=== PATIENT | female | born 1970 | race Caucasian/White ===

== ENCOUNTER 2018-06-01 22:03 | Emergency (ER) | payer BC, OTHER ==
[2018-06-01 22:14] VITALS: BP 124/80; PULSE 84; TEMP 98; BMI 23.0
--- NOTE | 2018-06-01 22:39 | PDOC ---
History of Present Illness - General Chief Complaint: Laceration Stated Complaint: LACERATION TO EYELID Time Seen by Provider: 06/01/18 22:34 - History of Present Illness Initial Comments: 06/01/18 22:36 47 yo F with no significant pmh who p/w right eyelid laceration. 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 Minimal blood loss, with absent eye involvement, vision change, headache, back pain, neck pain. Does not recall past tetanus. Denies foreign body involvement or debris, OTC medication use, or at home irrigation. Patient denies N/V, F,C, CP, SOB, urinary complaints, abdominal pain, diarrhea, constipation, lightheadedness, weakness, sensory changes. PMHx: as noted above ROS: as noted SHx: Reports Etoh this evening.Denies tobacco use, or IVDA. Allergies:NKDA Past History - Past Medical History Allergies/Adverse Reactions: Allergies Allergy/AdvReac Type Severity Reaction Status Date / Time Penicillins Allergy Unknown Verified 06/01/18 22:10 COPD: No - Immunization History Immunization Up to Date: Yes - Suicide/Smoking/Psychosocial Hx Smoking History: Current every day smoker Number of Cigarettes Smoked Daily: 10 Information on smoking cessation initiated: No Hx Alcohol Use: Yes Drug/Substance Use Hx: No Review of Systems - Review of Systems Comments:: 06/01/18 22:36 GENERAL/CONSTITUTIONAL: No fever or chills. No weakness. HEAD, EYES, EARS, NOSE AND THROAT: + Right eyelid laceration. No change in vision. No ear pain or discharge. No sore throat. CARDIOVASCULAR: No chest pain or shortness of breath RESPIRATORY: No cough, wheezing, or hemoptysis. GASTROINTESTINAL: No nausea, vomiting, diarrhea or constipation. GENITOURINARY: No dysuria, frequency, or change in urination. MUSCULOSKELETAL: No joint or muscle swelling or pain. No neck or back pain. SKIN: No rash NEUROLOGIC: No headache, vertigo, loss of consciousness, or change in strength/ sensation. ENDOCRINE: No increased thirst. No abnormal weight change HEMATOLOGIC/LYMPHATIC: No anemia, easy bleeding, or history of blood clots. ALLERGIC/IMMUNOLOGIC: No hives or skin allergy. *Physical Exam - Vital Signs Last Vital Signs Temp Pulse Resp BP Pulse Ox 98.0 F 84 18 124/80 100 06/01/18 22:11 06/01/18 22:11 06/01/18 22:11 06/01/18 22:11 06/01/18 22:11 - Physical Exam Comments: 06/01/18 22:37 GENERAL: Awake, alert, and fully oriented, in no acute distress HEAD: + 1-2 cm horizontal, linear, right superior lateral supraorbital/eyelid laceration, with absent galea visualized, and + subcutaneous involvement. Absent debris. Normocephalic EYES: PERRLA, EOMI, sclera anicteric, conjunctiva clear ENT: Hearing grossly normal, nares patent, oropharynx clear without exudates. Moist mucosa NECK: Normal ROM, supple, no lymphadenopathy, JVD, or masses LUNGS: No distress, speaks full sentences, clear to auscultation bilaterally HEART: Regular rate and rhythm, normal S1 and S2, no murmurs, rubs or gallops, peripheral pulses normal and equal bilaterally. EXTREMITIES : Normal inspection, Normal range of motion, no edema. No clubbing or cyanosis. SKIN: Warm, Dry, normal turgor, no rashes or lesions noted Procedures - Laceration/Wound Repair Right Lateral Eye Wound Length: to 2.5 cm Wound Explored: clean, no foreign body present Wound's Depth, Shape: superficial, linear Irrigated w/ Saline: Yes Betadine Prep: No Wound Debrided: minimal Layer Closure: No Sterile Dressing Applied: Yes Splint Applied: No Sling Applied: No Medical Decision Making - Medical Decision Making 06/01/18 23:34 47 yo F with no significant pmh who p/w right eyelid laceration following facial injury while intoxicated /Etoh. VSS, AF. + 1-2 cm linear, right superior lateral supraorbital/eyelid laceration, with absent galea visualized, and - foreign body or eye involvement. Neg proptosis, or suspicion of corneal abrasion. EOMI, PEERL. Vision intact. No evidence of facial bony deformity or concern for facial fracture, basilar skull fracture, SAH, hematoma, retroorbital hematoma, blowout fracture. Suture repair, tetatnus, and pain control. ED Course: Tetanus, laceration repair with dermabond Patient sober, with normal gait, and clear speech. Stable for d/c with return precautions. F/u with PMD. *DC/Admit/Observation/Transfer Diagnosis at time of Disposition: Eyelid laceration Qualifiers: Encounter type: initial encounter Laterality: right Qualified Code(s): S01.111A - Laceration without foreign body of right eyelid and periocular area, initial encounter - Discharge Dispostion Disposition: HOME Condition at time of disposition: Stable Decision to Admit order: No - Referrals Referrals: Hong Ford [Primary Care Provider] - - Patient Instructions Printed Discharge Instructions: DI for Laceration Repair Additional Instructions: Please return to the emergency department with any new or worsening symptoms or concerns. Please follow up with your primary care physician within 72 hours. - Post Discharge Activity - Attestations Physician Attestion: 06/01/18 22:39 I attest to the information provided in this note.
--- NOTE | 2018-06-01 23:20 | PDOC ---
Attending Attestation - Resident Resident Name: Ricardo Cameron - ED Attending Attestation I have performed the following: I have examined & evaluated the patient, The case was reviewed & discussed with the resident, I agree w/resident's findings & plan, Exceptions are as noted - Medical Decision Making 06/01/18 23:20 I, Dr. Traci Palacio, DO, attest that this document has been prepared under my direction and personally reviewed by me in its entirety. I further attest, that it accurately reflects all work, treatment, procedures and medical decision -making performed by me. 06/01/18 23:22 47yo female with alcohol use tonight who was getting ice out of the freezer and hit her head on the corner -no loc -linear 1cm lac to R eyebrow -no visual changes -no active bleeding -laceration is just under eyebrow -tetanus is not UTD -pt neuro intact -ambulates with a steady gait, no slurred speech -will update tetanus, dermabond to laceration -c spine without ttp -will repair laceration and will d/c to home <Traci Palacio - Last Filed: 06/01/18 23:22> - HPI HPI: 06/01/18 23:34 The patient is a 47-year-old female with no reported past medical history presents to the emergency department with a laceration. The patient reports she was attempting to get ice from the refrigerator, when he hit her R. eyelid against the fridge, denies a headache or LOC. The patient was at home with her friend when the incident occurred, reports having 4 glasses of wine tonight. The patient is unsure of her last tetanus shot. The patient reports a surgery to the L. knee s/p injuring her patella on her driveway. Allergies: penicillins - Physicial Exam PE: 06/01/18 23:43 GENERAL: Awake, alert, and fully oriented, in no acute distress HEAD: No signs of trauma EYES: pupils reactive. PERRLA, EOMI, sclera anicteric, conjunctiva clear LUNGS: Breath sounds equal, clear to auscultation bilaterally. No wheezes, and no crackles HEART: Regular rate and rhythm, normal S1 and S2, no murmurs, rubs or gallops NEUROLOGICAL: Neuro intact. Moves all extremities. Normal speech, normal gait SKIN: (+) 1 cm linear laceration without active bleeding under the R. eyebrow with mild soft tissue swelling. Warm, Dry, normal turgor, no rashes or lesions noted. - Medical Decision Making 06/01/18 23:34 Documentation prepared by Tanvi Farias, acting as medical underwriter for Traci Palacio DO. <Tanvi Farias - Last Filed: 06/01/18 23:43>
[2018-06-01] MEDS ORDERED: DIPHTH,PERTUSS(ACELL),TET 0.5 ML DISP.SYRIN IM ONE (23:21)
== END 2018-06-02 00:05 | disposition home or self-care (01) ==
LOC: JER 22:03 → JERFT 22:03 → JER 06-02 00:05
PROC: 3E0234Z Introduction of Serum, Toxoid and Vaccine into Muscle, Percutaneous Approach (ICD-10-PCS; principal; 2018-06-01)
PROC: 08QNXZZ Repair Right Upper Eyelid, External Approach (ICD-10-PCS; 2018-06-01)
DX: S01.111A Laceration without foreign body of right eyelid and periocular area, initial encounter (principal); F10.10 Alcohol abuse, uncomplicated; W22.8XXA Striking against or struck by other objects, initial encounter; Y93.89 Activity, other specified; Y92.030 Kitchen in apartment as the place of occurrence of the external cause; Y99.8 Other external cause status
CPT/HCPCS: 90715; 99281-25

== ENCOUNTER 2018-08-11 19:04 | Emergency (ER) | payer BC ==
[2018-08-11 19:26] VITALS: BMI 23.3
--- NOTE | 2018-08-11 20:04 | PDOC ---
History of Present Illness - General Chief Complaint: Psychiatric Stated Complaint: INTOX/PANIC ATTACK Time Seen by Provider: 08/11/18 19:21 History Source: Patient Exam Limitations: No Limitations - History of Present Illness Initial Comments: 08/11/18 20:11 48F w/ pmhx of asthma, hypothyroidism, anxiety d/o, GERD presents after a panic attack with new onset chest pain that happened this evening. Pt states the episode occurred while she was at home sitting on her couch. She admits to drinking 3-4 glasses of wine with her dinner. She reports her last panic attack was over a year ago. This episode was associated with chest pain for the first time, which prompted her to come to the ED. Pt reports the chest pain lasted about 30 min, and was 7/10 at the time of the episode, non-radiating, localized to the L of the sternum with associated numbness in her fingers. She also admits to sob, dizziness, lightheadedness, nausea during the episode with some mid-epigastric pain. Upon initial exam in the ED, however, pt was asymptomatic. PMHx: Asthma, hypothyroidism, GERD, anxiety d/o PSHx: L knee sx, tummy tuck FHx: Mother-Breast cx, brother-leukemia, maternal grandfather-HTN Social: Admits to smoking 1 pack/week x30 years, usually drinks 2-4 glasses of wine during dinner; Denies rec drug use Pt is not currently work. Denies recent travel. Past History - Past Medical History Allergies/Adverse Reactions: Allergies Allergy/AdvReac Type Severity Reaction Status Date / Time Penicillins Allergy Unknown Verified 08/11/18 19:38 Home Medications: Ambulatory Orders Alprazolam [Xanax] 0.5 mg PO PRN 08/11/18 Clonazepam [Klonopin] 1 mg PO TID 08/11/18 COPD: No - Immunization History Immunization Up to Date: Yes - Suicide/Smoking/Psychosocial Hx Smoking History: Current every day smoker Have you smoked in the past 12 months: Yes Number of Cigarettes Smoked Daily: 20 Information on smoking cessation initiated: No Hx Alcohol Use: Yes (1 botle of wine daily) Drug/Substance Use Hx: No Review of Systems - Review of Systems Constitutional: No: Chills, Fever HEENTM: No: Recent change in vision Respiratory: Yes: See HPI Cardiac (ROS): Yes: See HPI ABD/GI: Yes: Nausea. No: Constipated, Diarrhea, Vomiting Neurological: No: Headache Psychiatric: Yes: Anxiety, Stressors, Change in Appetite (decreased) *Physical Exam - Vital Signs Last Vital Signs Temp Pulse Resp BP Pulse Ox 98.4 F 94 H 20 124/75 96 08/11/18 19:21 08/11/18 19:21 08/11/18 19:21 08/11/18 19:21 08/11/18 19:21 - Physical Exam General Appearance: Yes: Appropriately Dressed HEENT: positive: EOMI, LITZY, Normal Voice, Pharynx Normal Neck: positive: Supple Respiratory/Chest: positive: Lungs Clear, Normal Breath Sounds Cardiovascular: positive: Regular Rhythm, Regular Rate, S1, S2. negative: Murmur Vascular Pulses: Dorsalis-Pedis (R): 2+, Doralis-Pedis (L): 2+ Gastrointestinal/Abdominal: positive: Normal Bowel Sounds, Soft Extremity: positive: Normal Inspection, Normal Range of Motion Integumentary: positive: Normal Color, Dry, Warm Neurologic: positive: contact lens flashing puncher II-XII NML intact, Fully Oriented, Alert, Motor Strength 5/5 Heart Score/ECG Review - History History: Slightly suspicious - Electrocardiogram EKG: Normal - Age Age: 45-65 - Risk Factors Risk Factors Heart Score: Yes Smoking History Based on the list above the patient has:: 1-2 risk factors - Troponin Troponin: </= normal limit - Score Heart Score - Total: 2 - ECG Intrepretation Rhythm: Regular Rhythm - Quincy Quincy: Normal ED Treatment Course - LABORATORY CBC & Chemistry Diagram: 08/11/18 20:17 08/11/18 20:17 - RADIOLOGY Radiology Studies Ordered: Category Date Time Status CHEST PA & LAT [RAD] Stat Radiology 08/11/18 19:53 Ordered Medical Decision Making - Medical Decision Making 08/11/18 20:45 48F w/ pmhx of asthma, hypothyroidism, anxiety d/o, GERD presents with new onset chest pain during a panic episode. -Pt complained of new chest pain lasting for 30 min which she has never experienced in the past. Will r/o ACS. Neg PERC score, unlikely PE. -CBC/CMP, cardiac profile, TSH, PT/INR, Mag, BNP, U/A, Serum preg, EKG, CXR ordered -will-reassess pt 08/11/18 20:50 -EKG showed NSR, no ST-T changes or evidence of other ischemic changes -CBC and U/A unremarkable 08/11/18 20:51 -Trops neg. Will repeat in 3 hours at 23:15. -Pt complaining of L sided numbness. Head CT w/o contrast ordered to r/o TIA. 08/11/18 21:34 -Head CT showed no evidence of intra or extra-axial hemorrhage. The ventricles and basilar cisterns are unremarkable. There is no evidence of intracranial mass , acute infarct, or midline shift. -Await CXR results; repeat trops Case discussed with Dr. Knowles. 08/12/18 00:15 -Sign out given to Dr. Salinas. *DC/Admit/Observation/Transfer Diagnosis at time of Disposition: Panic attack - Discharge Dispostion Disposition: HOME Condition at time of disposition: Good Decision to Admit order: No - Referrals Referrals: Hong Ford [Primary Care Provider] - - Patient Instructions Printed Discharge Instructions: DI for Anxiety -- Adult, DI for Panic Disorder Additional Instructions: You were seen in the ED for complaints of a panic attack and new onset chest pain. In the ED, your blood work was done which showed normal cardiac enzymes. An ECG (electrocardiogram) was done that did not show any signs of an acute cardiac condition. A chest x-ray was also done that was normal. There is no acute need for hospitalization at this time. You are being discharged home. Please follow up with your primary care physician, Dr. Ford, within 1 week. Please also follow up with your psychiatrist. If you experience persistent chest pain or shortness of breath, difficulty breathing, worsening leg numbness/tingling, please proceed to your nearest emergency room immediately. - Post Discharge Activity
--- NOTE | 2018-08-11 20:04 | PDOC ---
Attending Attestation - Resident Resident Name: Marylu East - ED Attending Attestation I have performed the following: I have examined & evaluated the patient, The case was reviewed & discussed with the resident, I agree w/resident's findings & plan, Exceptions are as noted - HPI HPI: 08/11/18 20:45 Ms Tadeo is a 48F w/ pmhx of asthma, hypothyroidism, anxiety, GERD She presents to the ER for evaluation s/p a panic attack which was followed by chest pain Symptoms began while pt was at home on her couch s/p drinking 3-4 glasses of wine with dinner. She reports her last panic attack was over a year ago. The reason she came in to the ER was because this was never associated in the past with chest pain No palpitations Symptoms lasted 30 minutes and resolved Pain was described as , was 7/10, non-radiating, localized to the L of the sternum with associated numbness in her fingers. No sob No nausea No vomiting No diaphoresis (+) tobacco use, Denies recent travel No exogenous estrogens 08/11/18 20:50 - Physicial Exam PE: 08/11/18 20:54 GENERAL: The patient is in no acute distress. EYES: PERRLA, EOMI, sclera anicteric, conjunctiva clear. ENT: Ears normal, nares patent, oropharynx clear without exudates. Moist mucous membranes. NECK: Normal range of motion, supple without lymphadenopathy, JVD, or masses. LUNGS: Breath sounds equal, clear to auscultation bilaterally. No wheezes, and no crackles. HEART:Regular rate and rhythm, normal S1 and S2 without murmur, rub or gallop. ABDOMEN: Soft, nontender, normoactive bowel sounds. No guarding, no rebound. No masses palpable. EXTREMITIES: Normal range of motion, no edema. No clubbing or cyanosis. No erythema, or tenderness. NEUROLOGICAL: Cranial nerves II through XII grossly intact. Normal speech. No focal neurological deficits. MUSCULOSKELETAL: Back non-tender to palpation, no CVA tenderness SKIN: Warm, Dry, normal turgor, no rashes or lesions noted. - Medical Decision Making 08/11/18 20:45 EKG - Twelve-lead EKG was performed and reviewed by me. There is normal sinus rhythm with a normal rate. The axis is normal. The intervals are normal. There are no ST or T wave abnormalities. Impression: Normal twelve-lead EKG Heart Score/ECG Review - History History: Slightly suspicious - Electrocardiogram EKG: Normal - Age Age: 45-65 - Risk Factors Risk Factors Heart Score: Yes Smoking History Based on the list above the patient has:: 1-2 risk factors - Troponin Troponin: </= normal limit - Score Heart Score - Total: 2
[2018-08-11 20:23] LABS: BASO % 0.9 % (0-2.0); EOS % 5.3 % (0-4.5); HEMATOCRIT 42.3 % (32.4-45.2); LYMPH % 32.2 % (8-40); MCH 31.1 pg (25.7-33.7); MCHC 33.1 g/dl (32.0-36.0); MEAN CELL VOLUME 94.2 fl (80-96); MEAN PLT VOLUME 7.7 fl (7.5-11.1); MONO % 6.2 % (3.8-10.2); NEUT % 55.4 % (42.8-82.8); PLATELET COUNT 293 K/MM3 (134-434); RBC 4.49 M/mm3 (3.60-5.2); RDW 13.7 % (11.6-15.6); WHITE BLOOD COUNT 7.5 K/mm3 (4.0-10.0)
[2018-08-11 20:26] LABS: URINE APPEARANCE CLEAR; URINE BILIRUBIN NEGATIVE (<2.0 mg/dL); URINE COLOR COLORLESS; URINE GLUCOSE (UA) NEGATIVE (NEGATIVE); URINE KETONE NEGATIVE (NEGATIVE); URINE LEUK ESTERASE NEGATIVE (NEGATIVE); URINE NITRITE NEGATIVE (NEGATIVE); URINE PROTEIN NEGATIVE (NEGATIVE); URINE UROBILINOGEN NEGATIVE mg/dL (0.2-1.0)
[2018-08-11 20:39] LABS: INR 0.95 (0.83-1.09); PROTHROMBIN TIME (PATIENT) 11.2 SEC (9.7-13.0)
[2018-08-11 20:43] LABS: EPI CELLS RARE /HPF (FEW); URINE BACTERIA RARE /hpf (NONE SEEN)
[2018-08-11 20:53] LABS: ALBUMIN 4.2 g/dl (3.4-5.0); ALK PHOS 83 U/L (45-117); ANION GAP 8 MMOL/L (8-16); BILIRUBIN,TOTAL 0.3 mg/dL (0.2-1); BLOOD UREA NITROGEN 9 mg/dL (7-18); CALCIUM 8.4 mg/dL (8.5-10.1); CHLORIDE 111 mmol/L (98-107); CO2 27 mmol/L (21-32); CREATININE 0.8 mg/dL (0.55-1.3); GLUCOSE,RANDOM 84 mg/dL (74-106); MAGNESIUM 2.4 mg/dL (1.8-2.4); SGOT/AST 36 U/L (15-37); SGPT/ALT 55 U/L (13-61); SODIUM 146 mmol/L (136-145)
--- NOTE | 2018-08-12 00:24 | PDOC ---
*Physical Exam - Vital Signs Last Vital Signs Temp Pulse Resp BP Pulse Ox 98.4 F 94 H 20 124/75 96 08/11/18 19:21 08/11/18 19:21 08/11/18 19:21 08/11/18 19:21 08/11/18 19:21 ED Treatment Course - LABORATORY CBC & Chemistry Diagram: 08/11/18 20:17 08/11/18 20:17 - ADDITIONAL ORDERS Additional order review: Laboratory Results 08/11/18 08/11/18 08/11/18 23:25 20:17 20:17 PT with INR INR Sodium Potassium Chloride Carbon Dioxide Anion Gap BUN Creatinine Creat Clearance w eGFR Random Glucose Calcium Magnesium Total Bilirubin AST ALT Alkaline Phosphatase Creatine Kinase 89 Troponin I < 0.02 B-Natriuretic Peptide 135.2 H Total Protein Albumin TSH Serum , Qual Urine Color Colorless Urine Appearance Clear Urine pH 6.0 Ur Specific [place] 1.003 L Urine Protein Negative Urine Glucose (UA) Negative Urine Ketones Negative Urine Blood 1+ H Urine Nitrite Negative Urine Bilirubin Negative Urine Urobilinogen Negative Ur Leukocyte Esterase Negative Urine WBC (Auto) <1 Urine RBC (Auto) 1 Ur Epithelial Cells Rare Urine Bacteria Rare 08/11/18 08/11/18 08/11/18 20:17 20:17 20:17 PT with INR 11.20 INR 0.95 Sodium 146 H Potassium 4.0 Chloride 111 H Carbon Dioxide 27 Anion Gap 8 BUN 9 Creatinine 0.8 Creat Clearance w eGFR > 60 Random Glucose 84 Calcium 8.4 L Magnesium 2.4 Total Bilirubin 0.3 AST 36 ALT 55 Alkaline Phosphatase 83 Creatine Kinase 104 Troponin I < 0.02 B-Natriuretic Peptide Total Protein 8.0 Albumin 4.2 TSH 1.92 Serum , Qual Negative Urine Color Urine Appearance Urine pH Ur Specific [place] Urine Protein Urine Glucose (UA) Urine Ketones Urine Blood Urine Nitrite Urine Bilirubin Urine Urobilinogen Ur Leukocyte Esterase Urine WBC (Auto) Urine RBC (Auto) Ur Epithelial Cells Urine Bacteria 08/11/18 20:17 RBC 4.49 MCV 94.2 MCHC 33.1 RDW 13.7 MPV 7.7 Neutrophils % 55.4 Lymphocytes % 32.2 Monocytes % 6.2 Eosinophils % 5.3 H Basophils % 0.9 Medical Decision Making - Medical Decision Making Pt was signed out to me by resident Dr. East, who explained the presentation , ED course, any pending results, and needed interventions. Pending results include repeat troponin. Pt is currently stable and is lying comfortably. Repeat troponin <.02. Considering normal lab results and imaging, pt can be discharged to home with follow-up. Pt advised to follow-up with PCP in 1-2 days. Strict return precautions provided with pt understanding. 08/12/18 00:17 *DC/Admit/Observation/Transfer Diagnosis at time of Disposition: Panic attack - Discharge Dispostion Disposition: HOME Condition at time of disposition: Good - Referrals Referrals: Hong Ford [Primary Care Provider] - - Patient Instructions Printed Discharge Instructions: DI for Anxiety -- Adult, DI for Panic Disorder Additional Instructions: You were seen in the ED for complaints of a panic attack and new onset chest pain. In the ED, your blood work was done which showed normal cardiac enzymes. An ECG (electrocardiogram) was done that did not show any signs of an acute cardiac condition. A chest x-ray was also done that was normal. There is no acute need for hospitalization at this time. You are being discharged home. Please follow up with your primary care physician, Dr. Ford, within 1 week. Please also follow up with your psychiatrist. If you experience persistent chest pain or shortness of breath, difficulty breathing, worsening leg numbness/tingling, please proceed to your nearest emergency room immediately. - Post Discharge Activity
[2018-08-12 00:41] VITALS: BP 105/67; PULSE 83; TEMP 98.7
--- NOTE | 2018-08-12 12:41 | EKG ---
Test Reason : Blood Pressure : / mmHG Vent. Rate : 083 BPM Atrial Rate : 083 BPM P-R Int : 152 ms QRS Dur : 076 ms QT Int : 378 ms P-R-T Axes : 034 021 038 degrees QTc Int : 444 ms NORMAL SINUS RHYTHM NORMAL ECG NO PREVIOUS ECGS AVAILABLE Confirmed by Sergei Michel ([id number]) on 08/12/2018 12:41:05 PM Referred By: Confirmed By:Sergei Michel
== END 2018-08-12 00:40 | disposition home or self-care (01) ==
LOC: JER 19:04
DX: F41.0 Panic disorder [episodic paroxysmal anxiety] (principal); F41.9 Anxiety disorder, unspecified; E03.9 Hypothyroidism, unspecified; J45.909 Unspecified asthma, uncomplicated; K21.9 Gastro-esophageal reflux disease without esophagitis; F17.210 Nicotine dependence, cigarettes, uncomplicated; Z88.0 Allergy status to penicillin
CPT/HCPCS: 36415; 70450-TC; 71046-TC-FY; 80053; 81003; 81015; 82550; 83735; 83880; 84443; 84484; 84703; 85025; 85610; 93005; 93010; 99283-25

== ENCOUNTER 2018-08-21 00:43 | Emergency (ER) | payer BC ==
[2018-08-21 01:33] VITALS: BP 98/74; PULSE 110; TEMP 979.8; BMI 23.9
--- NOTE | 2018-08-21 01:36 | PDOC ---
History of Present Illness - General Chief Complaint: Alcohol intoxication Stated Complaint: INTOXICATION Time Seen by Provider: 08/21/18 01:32 History Source: Patient - History of Present Illness Initial Comments: 08/21/18 01:58 48F w/ pmhx of asthma, hypothyroidism, anxiety d/o, GERD presents after a panic attack with chest discomfort. patient seen in the ED for same on 08/11. patient reports that she was trying to wean off her anxiety medication and noticed to have more frequent panic attacks. patient reports severe stress at home due to impending divorce, children. patient reports drinking two glasses of wine and feeling " buzzed" . denies daily drinking. tearful. denies SI, HI . Past History - Past Medical History Allergies/Adverse Reactions: Allergies Allergy/AdvReac Type Severity Reaction Status Date / Time Penicillins Allergy Unknown Verified 08/11/18 19:38 Home Medications: Ambulatory Orders Alprazolam [Xanax] 0.5 mg PO PRN 08/11/18 Clonazepam [Klonopin] 1 mg PO TID 08/11/18 COPD: No - Immunization History Immunization Up to Date: Yes - Suicide/Smoking/Psychosocial Hx Smoking History: Unknown if ever smoked Have you smoked in the past 12 months: Yes Number of Cigarettes Smoked Daily: 20 Hx Alcohol Use: Yes (1 botle of wine daily) Drug/Substance Use Hx: No Substance Use Type: Alcohol *Physical Exam - Vital Signs Last Vital Signs Temp Pulse Resp BP Pulse Ox 979.8 F H 110 H 19 98/74 100 08/21/18 00:45 08/21/18 00:45 08/21/18 00:45 08/21/18 00:45 08/21/18 00:45 - Physical Exam General Appearance: Yes: Appropriately Dressed, Alcohol on Breath Respiratory/Chest: positive: Lungs Clear, Normal Breath Sounds Cardiovascular: positive: Regular Rhythm, Regular Rate Gastrointestinal/Abdominal: positive: Normal Bowel Sounds, Soft Neurologic: positive: Fully Oriented, Alert, Other (denies SI/ HI) Medical Decision Making - Medical Decision Making 08/21/18 02:00 A: alcohol intoxication P: EKG sobriety no evidence of trauma 08/21/18 02:47 patient is here with friend who is taking her home . will d/c home. patient is without slurred speech, walking without difficulty. *DC/Admit/Observation/Transfer Diagnosis at time of Disposition: Panic attack, Alcohol use - Discharge Dispostion Disposition: HOME - Referrals Referrals: Hong Ford [Primary Care Provider] - - Patient Instructions Printed Discharge Instructions: DI for Anxiety -- Adult Additional Instructions: Additional Instructions: * Please call your personal physician to report your Emergency Department visit and to report your progress, if any. * If there is no improvement in symptoms in 2 days call your physician. * Return to the Emergency Department for any worsening symptoms. - Post Discharge Activity
--- NOTE | 2018-08-21 12:32 | EKG ---
Test Reason : Blood Pressure : / mmHG Vent. Rate : 091 BPM Atrial Rate : 091 BPM P-R Int : 142 ms QRS Dur : 074 ms QT Int : 366 ms P-R-T Axes : 024 016 036 degrees QTc Int : 450 ms NORMAL SINUS RHYTHM NORMAL ECG Confirmed by MD TROY GREGORY ([id number]) on 08/21/2018 12:31:53 PM Referred By: Confirmed By:MARIA ELENA TROY MD
== END 2018-08-21 02:56 | disposition home or self-care (01) ==
LOC: JER 00:43
DX: F10.10 Alcohol abuse, uncomplicated (principal); F41.0 Panic disorder [episodic paroxysmal anxiety]; F41.9 Anxiety disorder, unspecified; E03.9 Hypothyroidism, unspecified; J45.909 Unspecified asthma, uncomplicated; K21.9 Gastro-esophageal reflux disease without esophagitis
CPT/HCPCS: 93005; 93010; 99283-25

== ENCOUNTER 2018-09-03 21:59 | Emergency (ER) | payer BC ==
[2018-09-03 22:12] VITALS: BP 101/64; PULSE 75; TEMP 97.9; BMI 25.7
[2018-09-03] MEDS ORDERED: SODIUM CHLORIDE 0.9% 500 ML INFUS.BAG IV ONE (22:44)
[2018-09-03] MEDS ORDERED: FOLIC ACID INJECTION - 1 MG, THIAMINE HCL 100 MG, MULTIVIT INJECTION ADULT 10 ML in SOD... IVPB ONE (22:46)
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
[2018-09-03 23:26] LABS: BASO % 1.4 % (0-2.0); EOS % 6.9 % (0-4.5); HEMATOCRIT 37.8 % (32.4-45.2); HEMOGLOBIN 13.2 GM/dL (10.7-15.3); LYMPH % 34.9 % (8-40); MCH 32.3 pg (25.7-33.7); MCHC 34.9 g/dl (32.0-36.0); MEAN CELL VOLUME 92.7 fl (80-96); MEAN PLT VOLUME 7.7 fl (7.5-11.1); MONO % 8.6 % (3.8-10.2); NEUT % 48.2 % (42.8-82.8); PLATELET COUNT 279 K/MM3 (134-434); RBC 4.08 M/mm3 (3.60-5.2); RDW 13.3 % (11.6-15.6)
[2018-09-03 23:57] LABS: ALBUMIN 3.9 g/dl (3.4-5.0); ALK PHOS 74 U/L (45-117); ANION GAP 6 MMOL/L (8-16); BILIRUBIN,TOTAL 0.3 mg/dL (0.2-1); BLOOD UREA NITROGEN 6 mg/dL (7-18); CALCIUM 8.3 mg/dL (8.5-10.1); CHLORIDE 104 mmol/L (98-107); CO2 26 mmol/L (21-32); CREATININE 0.8 mg/dL (0.55-1.3); GLUCOSE,RANDOM 83 mg/dL (74-106); POTASSIUM 4.2 mmol/L (3.5-5.1); SGOT/AST 30 U/L (15-37); SGPT/ALT 38 U/L (13-61); SODIUM 136 mmol/L (136-145); TOT PROT 7.8 g/dl (6.4-8.2)
--- NOTE | 2018-09-03 23:58 | PDOC ---
Attending Attestation - Resident Resident Name: McJade - ED Attending Attestation I have performed the following: I have examined & evaluated the patient, The case was reviewed & discussed with the resident, I agree w/resident's findings & plan - HPI HPI: 09/04/18 00:54 The patient is a 48 year old female, with a significant past medical history of asthma, hypothyroidism, anxiety, GERD , who presents to the emergency department with, alcohol intoxication. As per patients , she drank approximately 2 bottles of wine between 4pm-7pm without eating. She has psychiatry and therapy follow up. She denies suicidal or homicidal ideation. Allergies: Penicillins. Social history: Alcohol abuse. Primary Care Physician: Dr. Ford - Physicial Exam PE: 09/04/18 00:54 NAD, well appearing, MMM, nl conjunctiva, anicteric; neck supple. lungs clear, RRR, abdomen soft nontender. LEA x4, no focal neuro deficits. No peripheral edema. normal color for ethnicity, WWP. - Medical Decision Making 09/04/18 00:54 hpi as documented VS wnl. etoh level elevated >300s, but is clinically sober, can have elevated alcohol level with chronic abuse. labs and lytes normal. given IVF, banana bag. [facility], but given referrals no si or hi. tolerating PO intake, conversive, no complaints.
== END 2018-09-04 01:37 | disposition home or self-care (01) ==
LOC: JER 21:59
PROC: 3E033GC Introduction of Other Therapeutic Substance into Peripheral Vein, Percutaneous Approach (ICD-10-PCS; principal; 2018-09-03)
DX: F10.920 Alcohol use, unspecified with intoxication, uncomplicated (principal); F41.0 Panic disorder [episodic paroxysmal anxiety]; J45.909 Unspecified asthma, uncomplicated
CPT/HCPCS: 36415; 80053; 80307; 85025; 99283-25; J7030

== ENCOUNTER 2018-11-03 03:27 | Observation (INO) | payer BC ==
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
[2018-11-03] MEDS ORDERED: SODIUM CHLORIDE 0.9% 500 ML INFUS.BAG IV ONE (03:44)
[2018-11-03] MEDS ORDERED: ACTIVATED CHARCOAL 260 MG CAPSULE PO ONE (03:48)
[2018-11-03] MEDS ORDERED: CHARCOAL/SORBITOL SOLUTION 25 GM/120 ML BTL ONE (03:54)
[2018-11-03 03:59] LABS: BASO % 0.5 % (0-2.0); EOS % 0.2 % (0-4.5); HEMATOCRIT 37.9 % (32.4-45.2); HEMOGLOBIN 13.3 GM/dL (10.7-15.3); LYMPH % 19.6 % (8-40); MCH 32.5 pg (25.7-33.7); MEAN CELL VOLUME 92.7 fl (80-96); MEAN PLT VOLUME 8.2 fl (7.5-11.1); NEUT % 71.7 % (42.8-82.8); PLATELET COUNT 259 K/MM3 (134-434); RBC 4.09 M/mm3 (3.60-5.2); RDW 13.3 % (11.6-15.6); WHITE BLOOD COUNT 9.8 K/mm3 (4.0-10.0)
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
[2018-11-03 04:30] LABS: ALBUMIN 4.1 g/dl (3.4-5.0); ALK PHOS 73 U/L (45-117); ANION GAP 12 MMOL/L (8-16); BILIRUBIN,TOTAL 0.3 mg/dL (0.2-1); BLOOD UREA NITROGEN 12 mg/dL (7-18); CALCIUM 8.4 mg/dL (8.5-10.1); CHLORIDE 108 mmol/L (98-107); CO2 20 mmol/L (21-32); CREATININE 0.8 mg/dL (0.55-1.3); GLUCOSE,RANDOM 106 mg/dL (74-106); POTASSIUM 4.1 mmol/L (3.5-5.1); SGOT/AST 45 U/L (15-37); SGPT/ALT 73 U/L (13-61); SODIUM 140 mmol/L (136-145); TOT PROT 7.6 g/dl (6.4-8.2)
[2018-11-03 05:28] VITALS: BMI 24.7
--- NOTE | 2018-11-03 07:09 | PDOC ---
*Physical Exam - Vital Signs Last Vital Signs Temp Pulse Resp BP Pulse Ox 98.3 F 98 H 16 102/64 93 L 11/03/18 03:28 11/03/18 06:54 11/03/18 03:28 11/03/18 06:54 11/03/18 06:54 - Physical Exam Comments: 11/03/18 07:07 Patient's care is endorsed to me by Dr. Justice at the end of his shift. 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 Pending evaluation by Dr. Minor this morning then dispo decision. ED Treatment Course - LABORATORY CBC & Chemistry Diagram: 11/03/18 03:48 11/03/18 03:48 - ADDITIONAL ORDERS Additional order review: Laboratory Results 11/03/18 11/03/18 11/03/18 04:05 03:48 03:48 Sodium 140 Potassium 4.1 Chloride 108 H Carbon Dioxide 20 L Anion Gap 12 BUN 12 Creatinine 0.8 Creat Clearance w eGFR > 60 Random Glucose 106 Calcium 8.4 L Total Bilirubin 0.3 AST 45 H ALT 73 H Alkaline Phosphatase 73 Creatine Kinase 100 Troponin I < 0.02 Total Protein 7.6 Albumin 4.1 Serum , Qual Negative Salicylates < 1.7 L Acetaminophen < 2.0 L Alcohol, Quantitative 208.1 H 11/03/18 03:48 RBC 4.09 MCV 92.7 MCHC 35.0 RDW 13.3 MPV 8.2 Neutrophils % 71.7 D Lymphocytes % 19.6 D Monocytes % 8.0 Eosinophils % 0.2 D Basophils % 0.5 - Medications Given in the ED: ED Medications Discontinued Medications Generic Name Dose Route Start Last Admin Trade Name Freq PRN Reason Stop Dose Admin Charcoal 25 mg 11/03/18 03:48 11/03/18 04:05 Charcoal Activated - PO 11/03/18 03:49 25 mg ONCE ONE Administration Sodium Chloride 1,000 ml 11/03/18 03:44 11/03/18 03:53 Normal Saline - IV 11/03/18 03:45 1,000 ml ONCE ONE Administration Medical Decision Making - Medical Decision Making 11/03/18 12:00 I spoke with America Viramontes; patient going to be ED Obs'ed to Dr. Clarke. Decision to Admit order placed. 11/03/18 14:16 Dr. Minor saw the patient. At this time the patient is adamantly denying SI or any attempted suicide. States she took #4 Xanax total overnight because she couldn't sleep. Denies having taken any Klonopin last night; states took one pill of it yesterday morning. Explains she gets one-week Rx of these meds from her psychiatrist. She has h/o abusing Xanax per her report, states the Klonopin is supposed to help her taper off. Dr. Minor psychiatrically clears her. Patient asks for Xanax for home and this is not given to her. We have microblogged [facility] with the update. *DC/Admit/Observation/Transfer Diagnosis at time of Disposition: Suicidal ideation Benzodiazepine (tranquilizer) overdose Qualifiers: Encounter type: initial encounter Injury intent: intentional self-harm Qualified Code(s): T42.4X2A - Poisoning by benzodiazepines, intentional self- harm, initial encounter - Discharge Dispostion Condition at time of disposition: Guarded Decision to Admit order: Yes - Referrals Referrals: Hong Ford [Primary Care Provider] - - Patient Instructions - Post Discharge Activity
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
[2018-11-03 14:24] VITALS: BP 107/72; PULSE 86; TEMP 98.3
--- NOTE | 2018-11-03 14:40 | EKG ---
Test Reason : Blood Pressure : / mmHG Vent. Rate : 100 BPM Atrial Rate : 100 BPM P-R Int : 132 ms QRS Dur : 070 ms QT Int : 342 ms P-R-T Axes : 022 016 016 degrees QTc Int : 441 ms NORMAL SINUS RHYTHM NORMAL ECG WHEN COMPARED WITH ECG OF 21-AUG-2018 02:11, NO SIGNIFICANT CHANGE WAS FOUND Confirmed by Jefferson March MD ([id number]) on 11/03/2018 2:39:53 PM Referred By: Confirmed By:Jefferson March MD
--- NOTE | 2018-11-04 09:21 | DS ---
Physical Exam: SUBJECTIVE: Patient seen and examined, pt remains A/Ox3, denie sHA, dizziness, weakness, cp, sob, palpitations,abdominal pain, N/V/D. denies homicidal or suicidal. OBJECTIVE: Vital Signs Period Temp Pulse Resp BP Sys/Rasheed Pulse Ox Last 24 Hr 98 F-98.3 F 86-93 16-16 104-107/70-72 99-99 PHYSICAL EXAM GENERAL: The patient is awake, alert, and fully oriented, in no acute distress. HEAD: Normal with no signs of trauma. EYES: PERRL, extraocular movements intact, sclera anicteric, conjunctiva clear. ENT: Ears normal, nares patent, oropharynx clear without exudates, moist mucous membranes. NECK: Trachea midline, full range of motion, supple. LUNGS: Breath sounds equal, clear to auscultation bilaterally, no wheezes, no crackles, no accessory muscle use. HEART: Regular rate and rhythm, S1, S2 without murmur, rub or gallop. ABDOMEN: Soft, nontender, nondistended, normoactive bowel sounds, no guarding, no rebound, no hepatosplenomegaly, no masses. EXTREMITIES: 2+ pulses, warm, well-perfused, no edema. NEUROLOGICAL: Cranial nerves II through XII grossly intact. Normal speech, gait not observed. PSYCH: Normal mood, normal affect. SKIN: Warm, dry, normal turgor, no rashes or lesions noted. LABS CBCD WBC 9.8 K/mm3 (4.0-10.0) 11/03/18 03:48 RBC 4.09 M/mm3 (3.60-5.2) 11/03/18 03:48 Hgb 13.3 GM/dL (10.7-15.3) 11/03/18 03:48 Hct 37.9 % (32.4-45.2) 11/03/18 03:48 MCV 92.7 fl (80-96) 11/03/18 03:48 MCHC 35.0 g/dl (32.0-36.0) 11/03/18 03:48 RDW 13.3 % (11.6-15.6) 11/03/18 03:48 Plt Count 259 K/MM3 (134-434) 11/03/18 03:48 MPV 8.2 fl (7.5-11.1) 11/03/18 03:48 CMP Sodium 140 mmol/L (136-145) 11/03/18 03:48 Potassium 4.1 mmol/L (3.5-5.1) 11/03/18 03:48 Chloride 108 mmol/L (98-107) H 11/03/18 03:48 Carbon Dioxide 20 mmol/L (21-32) L 11/03/18 03:48 Anion Gap 12 MMOL/L (8-16) 11/03/18 03:48 BUN 12 mg/dL (7-18) 11/03/18 03:48 Creatinine 0.8 mg/dL (0.55-1.3) 11/03/18 03:48 Creat Clearance w eGFR > 60 (>60) 11/03/18 03:48 Random Glucose 106 mg/dL (74-106) 11/03/18 03:48 Calcium 8.4 mg/dL (8.5-10.1) L 11/03/18 03:48 Total Bilirubin 0.3 mg/dL (0.2-1) 11/03/18 03:48 AST 45 U/L (15-37) H 11/03/18 03:48 ALT 73 U/L (13-61) H 11/03/18 03:48 Alkaline Phosphatase 73 U/L (45-117) 11/03/18 03:48 Total Protein 7.6 g/dl (6.4-8.2) 11/03/18 03:48 Albumin 4.1 g/dl (3.4-5.0) 11/03/18 03:48 CARDIAC ENZYMES Creatine Kinase 100 U/L (26-192) 11/03/18 03:48 Troponin I < 0.02 ng/ml (0.00-0.05) 11/03/18 03:48 HOSPITAL COURSE: Date of Admission:11/03/18 Date of Discharge: 11/04/18 The patient is a 48F with a PMH of asthma, hypothyroidism, anxiety, hypothyroidism, GERD and recently dx with bronchitis on Levaquin and steroid, who was brought in the ER for the evaluation of drug overdose. Poison control ctr [facility] notified, s/p Charcol in ER. Pt evaluated by PSY Dr. Guevara, cleared for discharge with out pt PSY followup. * Bronchitis: Will cont on out pt Levaquin and Steroid tx, pt is not in any kind of res distress *Asthma- stable * Hypothyroidism : will cont on Synthroid * Anxiety: Pt follows with out pt psy Dr. Panda Minutes to complete discharge: 35 Discharge Summary Reason For Visit: CONSUMES ALCOHOL,SUICIDAL IDEATION,BENZODIAZEPINE Condition: Stable - Instructions Diet, Activity, Other Instructions: Followup with Dr. Amarilys Rebolledo (pt's psychiatrist): [phone] on Monday. FOLLOWUP LIVER FUNCTION TESTS WITH PRIMARY CARE DOCTOR. Referrals: Hong Ford [Primary Care Provider] - (early next week.) Disposition: HOME - Home Medications Comprehensive Discharge Medication List: Ambulatory Orders Alprazolam [Xanax] 0.5 mg PO PRN 08/11/18 Clonazepam [Klonopin] 1 mg PO TID 08/11/18 Albuterol Sulfate [Proair Hfa] 8.5 gm IH Q4HWA PRN 11/03/18 Escitalopram Oxalate [Lexapro -] 40 mg PO DAILY 11/03/18 Levothyroxine [Synthroid -] 50 mcg PO DAILY 11/03/18 Methylprednisolone [Medrol Dose Judah] 4 mg PO ASDIR 11/03/18 levoFLOXacin [Levaquin -] 500 mg PO DAILY 11/03/18 This patient is new to me today: Yes Date on this admission: 11/04/18 Emergency Visit: Yes ED Registration Date: 11/03/18 Care time: The patient presented to the Emergency Department on the above date and was hospitalized for further evaluation of their emergent condition. Critical Care patient: No - Discharge Referral Referred to [facility] Med [facility] No
== END 2018-11-03 14:27 | disposition home or self-care (01) ==
LOC: JER 03:27 → JERBED 11:32
PROVIDERS: ADMIT Internal Medicine; ATTEND Internal Medicine
PROC: 3E0337Z Introduction of Electrolytic and Water Balance Substance into Peripheral Vein, Percutaneous Approach (ICD-10-PCS; principal; 2018-11-03)
DX: T42.4X2A Poisoning by benzodiazepines, intentional self-harm, initial encounter (principal); T51.92XA Toxic effect of unspecified alcohol, intentional self-harm, initial encounter; Y92.009 Unspecified place in unspecified non-institutional (private) residence as the place of occurrence of the external cause; R45.851 Suicidal ideations; E03.9 Hypothyroidism, unspecified; J45.909 Unspecified asthma, uncomplicated; F41.9 Anxiety disorder, unspecified; K21.9 Gastro-esophageal reflux disease without esophagitis; Z88.0 Allergy status to penicillin
CPT/HCPCS: 36415; 80053; 80307; 82550; 84484; 84703; 85025; 93005; 93010; 99285-25; G0378